=== PATIENT | male | born 1975 | race Caucasian/White ===

== ENCOUNTER 2017-01-12 05:22 | Day surgery (SDC) | payer OTHER ==
[~2017-01-12] VITALS: Ht 170.2 cm; Wt 108.8 kg
[~2017-01-12 05:22] MED LIST: CELEBREX 200MG200 MG PO; FLOMAX 0.40.4 MG/CAP PO; MELATONIN1 M1 PO; NORCO 325 MG-51 TAB PO; PYRIDIUM 100MG100 MG PO; REQUIP 1MG T1 MG/TAB PO
[2017-01-12 06:10] VITALS: BP 129/84; PULSE 75; TEMP 97.9
[2017-01-12] MEDS ORDERED: VITAMIN D31000 I1 PO (06:37)
[2017-01-12] MEDS ORDERED: MELATONIN5 M1 SL (06:37)
[2017-01-12] MEDS ORDERED: FLOMAX 0.40.4 MG/CAP PO (06:37)
[2017-01-12] MEDS ORDERED: ANDRODERM5 MG/24 HR TD (06:40)
[2017-01-12] MEDS ORDERED: COLACE 100100 MG/CAP PO ×2 (06:40→12:40)
[2017-01-12] MEDS ORDERED: REQUIP2 MG PO (06:41)
[2017-01-12] MEDS ORDERED: PRILOSEC 20MG20 MG PO (06:41)
[2017-01-12] MEDS ORDERED: CELEBREX 200MG200 MG PO (06:41)
[2017-01-12] MEDS ORDERED: UROCIT-K 5540 MG/TAB PO (06:42)
[2017-01-12] MEDS ORDERED: ZOCOR 20MG20 MG PO (06:42)
[2017-01-12] MEDS ORDERED: CYMBALTA 20MG20 MG PO (06:44)
[2017-01-12 08:26] VITALS: TEMP 97.3
[2017-01-12 08:35] VITALS: BP 129/73; PULSE 65
[2017-01-12 08:50] VITALS: BP 130/63; PULSE 63
[2017-01-12 09:05] VITALS: BP 123/75; PULSE 60
[2017-01-12] MEDS ORDERED: NORCO 325 MG-51 TAB PO (12:38)
[2017-01-12] MEDS ORDERED: PYRIDIUM 100MG100 MG PO (12:39)
== END 2017-01-12 09:27 | disposition home or self-care (01) ==
LOC: SDCO 05:22
DX: N20.1 Calculus of ureter (principal); F43.10 Post-traumatic stress disorder, unspecified; G47.33 Obstructive sleep apnea (adult) (pediatric); K21.9 Gastro-esophageal reflux disease without esophagitis; Z98.52 Vasectomy status; Z83.3 Family history of diabetes mellitus; Z80.3 Family history of malignant neoplasm of breast; Z82.49 Family history of ischemic heart disease and other diseases of the circulatory system; Z80.0 Family history of malignant neoplasm of digestive organs; Z80.8 Family history of malignant neoplasm of other organs or systems; Z84.1 Family history of disorders of kidney and ureter
CPT/HCPCS: C1769; J0690; J1885; J1940; J2405; J2704; J3010; J7120; Q9967